=== PATIENT | female | born 1990 | race Caucasian/White ===

== ENCOUNTER → 2016-10-19 | Day surgery (SDC) | payer BC ==
[~2016-10-19] MED LIST: ALBUTEROL20 ml INH; BIRTH CONTROL PILL PO; FLEXERIL10 M1 PO; IBUPROFEN800 MG PO; NO MEDICATIONS; PERCOCET 5-3251 TAB PO; [UNRECOGNIZED DRUG - OTHER] PO
--- NOTE | ~2016-10-19 | OR ---
Unit #: [id number] #: [id number] Patient: QAMAR PETERSON [id number] [facility] [address] [place], [place] [address] [id number] O MR#: [id number] NAME: QAMAR PETERSON ROOM: Date of Procedure: 10/19/2016 Admission Date: 10/19/2016 Surgeon: Buzz Cervantes M.D. : 1990 Attending Physician: Buzz Cervantes M.D. Primary Care Physician: Toyin Cordon M.D. PROCEDURE OPERATIVE NOTE PREOPERATIVE DIAGNOSIS Enlarging left axillary mass. POSTOPERATIVE DIAGNOSIS Enlarging left axillary mass. PROCEDURE PERFORMED Excisional biopsy 6 x 4 cm left axillary mass consistent with extramammary breast tissue. ANESTHESIA General endotracheal anesthesia. ESTIMATED BLOOD LOSS Less than 20 mL. INDICATION 26 year old female had an enlarging soft tissue mass in the left axilla that enlarged and became painful during her menstrual periods. She had had a previous excision on the right side of some extramammary tissue and this was consistent with extramammary tissue on the left. PROCEDURE Patient admitted to [facility], positively identified, transported to the operating room. After induction of general endotracheal anesthesia, left arm was abducted on an operating armboard and a bump was placed under the left shoulder. She was prepped and draped in usual sterile fashion. In the skin line, an incision was made, resected down, and dissected out all of the abnormal tissue from the subcutaneous tissue down to the level of the clavipectoral fascia. The mass was removed, irrigated and obtained hemostasis. Local anesthetic solution infiltrated for postop pain control. The subcutaneous tissues were closed with 3.0 Vicryl interrupted suture and the skin was reapproximated with 4-0 Monocryl running subcuticular closure and Dermabond skin adhesion. Sponge, instrument and needle counts were correct x3. The patient tolerated the procedure well and was transported to recovery in stable condition. Findings and postoperative instructions were discussed with her family. Dictated by... Unit #: [id number] #: [id number] Patient: QAMAR PETERSON Buzz Cervantes M.D. RS/stephon TD: 10/19/2016 12:06 JOB #: [id number] PROCEDURE OPERATIVE NOTE Page 1 of 1 X Buzz Cervantes MD PROCEDURE OPERATIVE NOTE
[2016-10-19 07:47] LABS: BASOPHIL% 0.5 % (0-2.5); EOSINOPHIL# 0.1 X10e3 (0-0.7); HEMATOCRIT 36.8 % (35.0-45.0); HEMOGLOBIN 12.1 gm/dL (12.0-16.0); LYMPHOCYTE# 2.1 X10e3 (1.0-3.5); LYMPHOCYTE% 36.2 % (17.0-45.0); MEAN CELL VOLUME 87.5 FL (83-96); MEAN CORPUSCULAR HEMOGLOBIN 28.7 PG (28-34); MEAN CORPUSCULAR HGB CONC 32.7 g/dL (30-36); MEAN PLATELET VOLUME 7.9 FL (6.5-11.5); MONOCYTE# 0.5 X10e3 (0-1.0); MONOCYTE% 8.2 % (3.0-12.0); NEUTROPHIL% 53.1 % (40-75); PLATELET COUNT 208 X10e3 (140-420); RED BLOOD COUNT 4.21 X10e (3.90-5.30); RED CELL DISTRIBUTION WIDTH 13.2 % (11.0-15.5); WHITE BLOOD COUNT 5.7 X10e3 (4.0-10.5)
[2016-10-19 07:51] LABS: DIFF IND NO
[2016-10-19 08:09] LABS: BUN/CREATININE RATIO 18.33; CALCIUM SERUM 9.1 mg/dL (8.4-10.2); CREATININE SERUM 0.6 mg/dL (0.6-1.4); GLOM FILT RATE Estimated 126.7 mL/min (>60); POTASSIUM 3.9 mmol/L (3.5-5.1)
== END | disposition home or self-care (01) ==
LOC: CSUR 06:57
PROVIDERS: Specialist
DX: N64.89 Other specified disorders of breast (principal); J45.909 Unspecified asthma, uncomplicated; Z98.890 Other specified postprocedural states
CPT/HCPCS: 80048; 84703; 85025; 88305; J0690; J2250; J3010